=== PATIENT | male | born 1965 | race Caucasian/White ===

== ENCOUNTER 2018-01-10 10:40 | Emergency (ER) | payer OTHER ==
--- NOTE | 2018-01-10 11:03 | EDPHY ---
H & P Stated Complaint: Fatigue, presyncope Time Seen by Provider: 01/10/18 11:03 HPI/ROS: CHIEF COMPLAINT: Fatigue, presyncope HISTORY OF PRESENT ILLNESS: The patient presents to the ED with a one-week history of fatigue and increasing presyncope. The patient has a history of coronary artery disease diagnosed by catheterization in 2013. He has no history of stenting or intervention. The patient presents to the ED today after he reports that for the past week he has felt particularly weak after exercising. He denies any exertional chest pain or shortness of breath. He did have some transient paresthesias in his left cheek. Additionally after checking a left carotid pulse the patient developed presyncope earlier today. The patient denies actual loss of consciousness. He denies any complaints of acute neck pain. The patient reports his last stress test in 2016 was normal. REVIEW OF SYSTEMS: A comprehensive 10 point review of systems is otherwise negative aside from elements mentioned in the history of present illness. Source: Patient - Personal History Current Tetanus Diphtheria and Acellular Pertussis (TDAP): Yes - Medical/Surgical History Hx Asthma: No Hx Chronic Respiratory Disease: No Hx Diabetes: No Hx Cardiac Disease: Yes Hx Renal Disease: No Hx Cirrhosis: No Hx Alcoholism: No Hx HIV/AIDS: No Hx Splenectomy or Spleen Trauma: No Other PMH: High cholesterol. CAD. - Social History Smoking Status: Never smoked - Physical Exam Exam: General Appearance: Alert, no distress Eyes: Pupils equal and round no pallor or injection ENT, Mouth: Mucous membranes moist Respiratory: There are no retractions, lungs are clear to auscultation Cardiovascular: Regular rate and rhythm Gastrointestinal: Abdomen is soft and nontender, no masses, bowel sounds normal Neurological: A&O, normal motor function, normal sensory exam, normal cranial nerves Skin: Warm and dry, no rashes Musculoskeletal: Neck is supple nontender Extremities: symmetrical, full range of motion Constitutional: Initial Vital Signs Temperature (C) 36.4 C 01/10/18 10:45 Heart Rate 72 01/10/18 10:45 Respiratory Rate 18 01/10/18 10:45 Blood Pressure 175/95 H 01/10/18 10:45 O2 Sat (%) 98 01/10/18 10:45 O2 Delivery Mode Room Air Allergies/Adverse Reactions: No Known Allergies Allergy (Unverified 05/31/14 08:48) Home Medications: Medication Instructions Recorded Aspirin [Aspirin 81mg (OTC)] 06/09/14 Medical Decision Making - Diagnostics EKG Interpretation: EKG: Complete interpretation has been separately recorded in the [employer] archive. Summary impression: Sinus rhythm, rate 79 Imaging Results: Imaging Impressions Chest X-Ray 01/10/18 11:05 Impression: Clear lungs. Minimal airways disease. ED Course/Re-evaluation: The patient presents to the ED for evaluation of increased fatigue after exercise and mild presyncope. He is not had chest pain or shortness of breath. His symptoms have been occurring throughout the past week. The patient was noted to be neurologically intact. He has no carotid bruit. He has no history suggestive risk for dissection. The patient's EKG demonstrates no evidence of ischemia. The patient's troponin is normal. I reviewed the results of the patient's angiogram in 2013. At this point time the patient has no evidence of myocardial infarction. I do feel that he is appropriate for further risk stratification with his [facility]. I did briefly curbside Dr. Patel who is aware the patient will be contacting the office to schedule a follow-up visit. The patient will be advised to curtail strenuous activity until seen by Cardiology. He is advised to return to the ED immediately for any chest pain or shortness of breath. Differential Diagnosis: Differential diagnosis considered includes acute coronary syndrome, myocardial infarction, anemia, dehydration, metabolic abnormality - Data Points Laboratory Results: Laboratory Results 01/10/18 11:00 01/10/18 11:00 01/10/18 01/10/18 11:00 11:00 WBC 6.43 10^3/uL 10^3/uL (3.80-9.50) RBC 4.97 10^6/uL 10^6/uL (4.40-6.38) Hgb 16.0 g/dL g/dL (13.7-17.5) Hct 46.0 % % (40.0-51.0) MCV 92.6 fL fL (81.5-99.8) MCH 32.2 pg pg (27.9-34.1) MCHC 34.8 g/dL g/dL (32.4-36.7) RDW 12.5 % % (11.5-15.2) Plt Count 197 10^3/uL 10^3/uL (150-400) MPV 9.0 fL fL (8.7-11.7) Neut % (Auto) 28.5 % L % (39.3-74.2) Lymph % (Auto) 55.8 % H % (15.0-45.0) [place] % (Auto) 9.8 % % (4.5-13.0) Eos % (Auto) 5.4 % % (0.6-7.6) Baso % (Auto) 0.3 % % (0.3-1.7) Nucleat RBC Rel Count 0.0 % % (0.0-0.2) Absolute Neuts (auto) 1.83 10^3/uL 10^3/uL (1.70-6.50) Absolute Lymphs (auto) 3.59 10^3/uL H 10^3/uL (1.00-3.00) Absolute Monos (auto) 0.63 10^3/uL 10^3/uL (0.30-0.80) Absolute Eos (auto) 0.35 10^3/uL 10^3/uL (0.03-0.40) Absolute Basos (auto) 0.02 10^3/uL 10^3/uL (0.02-0.10) Absolute Nucleated RBC 0.00 10^3/uL 10^3/uL (0-0.01) Immature Gran % 0.2 % % (0.0-1.1) Immature Gran # 0.01 10^3/uL 10^3/uL (0.00-0.10) Sodium 141 mEq/L mEq/L (135-145) Potassium 4.1 mEq/L mEq/L (3.5-5.2) Chloride 102 mEq/L mEq/L (97-110) Carbon Dioxide 26 mEq/l mEq/l (22-31) Anion Gap 13 mEq/L mEq/L (8-16) BUN 13 mg/dL mg/dL (7-23) Creatinine 0.9 mg/dL mg/dL (0.7-1.3) Estimated GFR > 60 Glucose 89 mg/dL mg/dL (70-100) Calcium 9.1 mg/dL mg/dL (8.5-10.4) Troponin I 0.024 ng/mL ng/mL (0.000-0.034) Specimen Hemolysis 111 Departure - Departure Disposition: Home, Routine, Self-Care Clinical Impression: Fatigue Condition: Good Instructions: Chest Pain (ED) Additional Instructions: 1. Based upon the testing done in the Emergency Department today we see no evidence of a heart attack. 2. We are unable to fully exclude coronary artery disease based upon the testing available in the Emergency Department. 3. For this reason, we would like you to be seen by cardiology for consideration of additional testing within the next 3 days. 4. Please contact the [facility] you have been referred to schedule this appointment as soon as possible. Their offices are typically open from 8:30am- 5pm M-F. 5. Please return to the Emergency Department immediately for any recurrent chest pain, difficulty breathing or other concerns. Referrals: Chaitanya Patel MD [Medical Doctor] - As per Instructions
--- NOTE | 2018-01-10 11:05 | CPEKG ---
Heart Rate: 79 RR Interval: 759 P-R Interval: 200 QRSD Interval: 82 QT Interval: 380 QTC Interval: 436 P [place]: 60 QRS [place]: 18 T Wave [place]: 41 EKG Severity - NORMAL ECG - EKG Impression: SINUS RHYTHM Electronically Signed By: Tom Box 10-Jan-2018 11:35:32
[2018-01-10 11:10] LABS: PLATELET COUNT 197 10^3/uL (150-400)
[2018-01-10 12:42] VITALS: BP 145/98
== END 2018-01-10 12:41 | disposition home or self-care (01) ==
DX: R53.83 Other fatigue (principal); I25.10 Atherosclerotic heart disease of native coronary artery without angina pectoris; Z79.82 Long term (current) use of aspirin

== ENCOUNTER → 2018-10-12 | Outpatient (CLI) | payer OTHER | LOC: BMCIMAGING 17:12 | PROVIDERS: ATTEND Family Medicine | DX: S99.912A Unspecified injury of left ankle, initial encounter (principal); S82.402A Unspecified fracture of shaft of left fibula, initial encounter for closed fracture ==

== ENCOUNTER → 2018-10-20 | Outpatient (CLI) | payer OTHER | LOC: BMCIMAGING 14:11 | PROVIDERS: ATTEND Podiatrist Foot & Ankle Surgery | DX: S82.455D Nondisplaced comminuted fracture of shaft of left fibula, subsequent encounter for closed fracture with routine healing (principal) ==